=== PATIENT | male | born 1955 | race Two or more races ===

== ENCOUNTER 2022-03-13 10:10 | Outpatient (CLI) | payer OTHER | END 2022-03-13 10:14 | disposition home or self-care (01) | LOC: LAB 10:10 | DX: R31.21 Asymptomatic microscopic hematuria (principal) ==

== ENCOUNTER 2022-03-15 08:32 | Outpatient (CLI) | payer OTHER | END 2022-03-15 08:37 | disposition home or self-care (01) | LOC: TOM 08:32 | PROVIDERS: ATTEND Urology | DX: N40.0 Benign prostatic hyperplasia without lower urinary tract symptoms (principal); R31.21 Asymptomatic microscopic hematuria | CPT/HCPCS: 74177; Q9965 ==